=== PATIENT | female | born 1965 | race Hispanic/Latino ===

== ENCOUNTER → 2017-11-07 | Day surgery (SDC) | payer OTHER ==
[~2017-11-07] VITALS: Ht 160 cm; Wt 90.3 kg
--- NOTE | 2017-11-16 16:52 | Operative Report ---
Operative/Inv Procedure Report Surgery Date: 11/07/17 Name of Procedure: D&C hysteroscopy and NovaSure ablation Pre-Operative Diagnosis: Menometrorrhagia Post-Operative Diagnosis: Same Estimated Blood Loss: less than 50ml Surgeon/Cam Maker: Kaleb Givens MD Anesthesia: local monitored anesthesi Operative/Procedure Note Note: The patient was brought to the operating room placed on the OR table in the dorsal supine position. After Adequate anesthesia she was repositioned in modified dorsal lithotomy prepped and draped in usual sterile fashion. A weighted speculum was inserted into the vagina with help of a [place] retractor single-tooth tenaculum was attached anterior lip of the cervix. Cervix was injected with 1% lidocaine with epinephrine. An endocervical curettage is performed. Cervix cervix was dilated to accommodate the hysteroscope hysteroscope was placed into the uterus and the saline infusion was activated. No polyps or fibroids were noted and hysteroscope was removed. Cervix was further dilated and endometrial curettage was performed. The NovaSure apparatus was placed into the uterus and primed. It was started at 90 seconds at 116 W of power. At the end of the procedure it was removed intact hemostasis verified and the instruments removed patient was then awakened and sent to recovery in good condition. All needle, sponge, and inspected counts were correct at the end of the procedure 2.
== END ==
LOC: STS 10-24 07:00
DX: N92.1 Excessive and frequent menstruation with irregular cycle (principal); R12 Heartburn; K58.9 Irritable bowel syndrome, unspecified
CPT/HCPCS: 88305; J0131; J2001; J2250